=== PATIENT | female | born 1975 ===

== ENCOUNTER 2021-12-14 09:30 | Inpatient (IN) | payer OTHER ==
[~2021-12-14] VITALS: Ht 170.2 cm; Wt 108.9 kg
[2021-12-14] MEDS ORDERED: MULTI VITAMIN1 EACH PO (12:51)
[2021-12-14] MEDS ORDERED: FEOSOL325 MG PO (12:51)
[2021-12-14] MEDS ORDERED: ASHWAGANDHA PO (12:54)
[2021-12-21] MEDS ORDERED: SPRINTEC 28 DA1 EACH (08:25)
[2021-12-21] MEDS ORDERED: ASHWAGANDHA500 MG PO (08:26)
[2021-12-23] MEDS ORDERED: Tylenol #3 PO (08:07)
[2021-12-23] MEDS ORDERED: NAPR500T14 PO (08:08)
== END 2021-12-23 08:50 | disposition home or self-care (01) | DRG 743 ==
LOC: OB/GYN 12-20 09:30 → O/R 12-20 09:56 → OB/GYN 12-20 19:46
PROVIDERS: ADMIT Obstetrics & Gynecology; ATTEND Obstetrics & Gynecology
PROC: 0TJB8ZZ Inspection of Bladder, Via Natural or Artificial Opening Endoscopic (ICD-10-PCS; 2021-12-20)
PROC: 0UT90ZZ Resection of Uterus, Open Approach (ICD-10-PCS; principal; 2021-12-20 09:45)
DX: D25.1 Intramural leiomyoma of uterus (principal); D25.2 Subserosal leiomyoma of uterus; Z20.822 Contact with and (suspected) exposure to COVID-19